=== PATIENT | male | born 1940 | race Caucasian/White ===

== ENCOUNTER 2022-11-16 12:12 | Outpatient (CLI) | payer BC, SELFPAY ==
--- OUTSIDE RECORDS SUMMARY | 2022-11-17 09:50 | XMS_ITS | Continuity of Care Document ---
Author Name [facility] Team Providers Care Weighter Name Role Phone [facility] Unavailable Unavailable Problems Problem Status Onset Date Classification Date Reported Comments Source Open wound of toe (disorder) 07/05/2021 [facility] Accidental bumping into stationary object (finding) 07/05/2021 [facility] Closed fracture of distal phalanx of right great toe (disorder) 07/05/2021 [facility] Laceration of great toe (disorder) 07/05/2021 [facility] Long-term current use of anticoagulant (situation) 07/05/2021 [facility] Cardiac pacemaker in situ (finding) 07/05/2021 [facility] Medications Medication Details Route Status Patient Instructions Ordering Provider Order Date Source Cephalexin 500 MG Oral Capsule [Keflex] 2 Cap Cap, PO, BID, Qty: 40 Cap, Refills: 0, Maintenance, Print Requisition Inactive 022 [facility] Diagnostic Reports Report Value Date Source XR [...] N A L * * * 06/27/2021 [facility] Consultation Notes Results Value Date Source ED [...] Co Signature By: Modify Signature By: 06/27/2021 [facility] ED Discharge Note - Text ED Discharge [...] Aleyda Bridges - 06/27/2021 1:14 MST 06/27/2021 [facility] Discharge Instructions Document [facility] [address] [place], [place] [address] BRIELLE VILLASEÑOR :1940 (EV) Visit Date:06/26/2021 SAFE [...] receive a prescription for pain medicines. In [place], we use the [place] Prescription Drug Monitoring Program called BoutirS. In [place] and [place], we use the Prescription Monitoring Program that has oversight by the [place] and [facility] boards of pharmacy. These statewide computer systems track opioid pain medications and other controlled substance prescriptions. If you need help with substance abuse or addiction, please call [phone] ([phone] for confidential referral and treatment. Sponsored by: [employer] [facility] [employer] [facility] Healthcare Association [facility] [employer] Safe Practice, Safe Care [facility] Emergency Department Patient Discharge Instructions If your [...] 3 days Why: Podiatry Where: [address] [facility] [place] [address]- Business (1) Follow Up with Out of State PCP When Within 1 to 3 days We encourage you to sign up for My Portal, where you can easily access your medical records and test results from all [facility]. Please sign up in one of the [...] and water are not available, use hand conservation scientist. Change your dressing as told by your [...] swelling. It also prevents infection. Medicine Take [id number] and prescription medicines only as told by [...] provider. Document Revised: 10/26/2018 Document Reviewed: 10/26/2018 [employer] Patient Education ? 2020 [employer] Nail Avulsion Nail avulsion is when [...] and water are not available, use hand conservation scientist. Change your dressing as told by your [...] swelling. It also prevents infection. Medicine Take yhft-xlq-gbozkjg and prescription medicines only as told by [...] Reviewed: 10/26/2018 Elsevier Patient Education ? 2020 [employer] I understand that [facility] is not responsible for any personal belongings/effects [...] Adult Signature: Date/Time: Provider Signature: Date/Time: 06/27/2021 [facility] Discharge Instructions Document [facility] [address] [place], [place] [address] BRIELLE VILLASEÑOR :1940 (EV) Visit Date:06/26/2021 SAFE [...] receive a prescription for pain medicines. In [place], we use the [place] Prescription Drug Monitoring Program called CURES. In [place] and [place], we use the Prescription Monitoring Program that has oversight by the [place] and [facility] boards of pharmacy. These statewide computer systems track opioid pain medications and other controlled substance prescriptions. If you need help with substance abuse or addiction, please call [phone] ([phone]) for confidential referral and treatment. Sponsored by: [employer] ADVANCING EMERGENCY CARE DIRECTOR [facility] [employer] [facility] and Healthcare Association [facility] Association [employer] Safe Practice, Safe Care [facility] Emergency Department Patient Discharge Instructions If your [...] 1 to 3 days Why: Podiatry Where: [address] [address] [facility] [place] [address]- Business (1) Follow Up with Out of State PCP When Within 1 to 3 days We encourage you to sign up for My Portal, where you can easily access your medical records and test results from all [facility]. Please sign up in one of the [...] and water are not available, use hand conservation scientist. Change your dressing as told by your [...] swelling. It also prevents infection. Medicine Take ofkn-znv-dsgfjnc and prescription medicines only as told by [...] provider. Document Revised: 10/26/2018 Document Reviewed: 10/26/2018 [employer] Patient Education ? 2020 [employer] Nail Avulsion Nail avulsion is when [...] and water are not available, use hand conservation scientist. Change your dressing as told by your [...] swelling. It also prevents infection. Medicine Take gdhx-uze-hnsnxwa and prescription medicines only as told by [...] Reviewed: 10/26/2018 Elsevier Patient Education ? 2020 [employer] I understand that [facility] is not responsible for any personal belongings/effects [...] Adult Signature: Date/Time: Provider Signature: Date/Time: 06/27/2021 [facility] ED Physician Notes Patient: BRIELLE VILLASEÑOR (EV) [...] The case was discussed with: the physician medical technician assistant (LB Natarajan). History of Present Illness [...] date. Patient seen and evaluated with physician medical technician assistant, please see the note for complete [...] and Plan Complaint of Toe laceration (PNED [id number], Reason For Visit, Nursing) Nail avulsion of toe ([id number] S91.209A, Discharge, Medical) Plan Notes: Roscoe Strange [...] Maida Cook DO On 06/27/21 02:51 06/27/2021 [facility] ED Physician Notes Patient: BRIELLE VILLASEÑOR (EV) [...] Measurements 06/26/2021 23:16 MST BSA-pt care 2.17 [place] Body Weight 75.3 kg Weight Method Actual [...] Impression and Plan Nail avulsion of toe ([id number] S91.209A, Discharge, Medical) Plan Condition: Stable. Disposition: Medically cleared, Discharged: to home. Prescriptions: [facility]: Keflex 500 mg oral capsule (Prescribe): [...] By: Roscoe Aguiar On 06/26/21 23:37 06/27/2021 [facility] ED Assessment - Text ED Initial Screenin g Entered On: 06/26/2021 23:20 [facility] Performed On: 06/26/2021 23:19 MST by Esther Persaud RN ED General Assessment Document Falls Risk : Open ED [facility] Fall Risk Assessment Emotional Assmt Criteria : Does not meet criteria Document Tim Skin Risk : Open Tim Skin Risk Assessment Document Social History : Open social history Suicide Risk Screen : Yes Immunization Opt Out : Allow Esther Persaud RN - 06/26/2021 23:19 [facility] ED Abuse Observable Signs of Abuse/Violence : None observed Threatening Health, Safety, Well-being : Denies Abuse Calculation : 0 Abuse Interp : No Esther Persaud RN - 06/26/2021 23:19 [facility] ED Fall Interventions Basic Fall Safety Interven [...] reach, Provide fall prevention eduction to patient/family, [place] patient to surroundings, call light, lighting, location of BR, whether to use BR with or without assistance, Encourage non-skid footwear when ambulating, Consider bedside commonde/urinal Esther Persaud RN - 06/26/2021 23:19 [facility] [place] Suicide Severity Rating Scale (C-SSRS) 1. In [...] time Esther Persaud RN - 06/26/2021 23:19 [facility] ED Fall Risk Assessment History of Falling [...] 23:19:48 MST by Esther Persaud RN) Home/Environment: [employer] restrictions/concerns: None. (Last Updated: 06/26/2021 23:19:51 MST [...] 23 Esther Persaud RN - 06/26/2021 23:19 [facility] 06/27/2021 [facility] ED Assessment - Text ED Initial Screenin g Entered On: 06/26/2021 23:20 MST Performed On: 06/26/2021 23:19 MST by Esther Persaud RN ED General Assessment Document Falls Risk : Open ED [facility] Fall Risk Assessment Emotional Assmt Criteria : [...] No Esther Persaud RN - 06/26/2021 23:19 [facility] ED Fall Interventions Basic Fall Safety Interven [...] reach, Provide fall prevention eduction to patient/family, [place] patient to surroundings, call light, lighting, location of BR, whether to use BR with or without assistance, Encourage non-skid footwear when ambulating, Consider bedside commonde/urinal Esther Persaud RN - 06/26/2021 23:19 [facility] [place] Suicide Severity Rating Scale (C-SSRS) 1. In [...] time Esther Persaud RN - 06/26/2021 23:19 [facility] ED Fall Risk Assessment History of Falling (Fall) : No Confusion Disorientation (Fall) : No Intoxicated Sedated (Fall) : No Impaired Gait (Fall) : No Mobility Assist Device (Fall) : No Altered Elimination (Fall) : No Fall Risk Score (Fall) : 0 Basic Fall Risk Safety Interventions : Yes Esther Persaud RN - 06/26/2021 23:19 [facility] Social History Verified Prev Data - Social History : Yes Esther Persaud RN - 06/26/2021 23:19 [facility] Social History (As Of: 06/26/2021 23:36:55 [facility]) Tobacco: Never (less than 100 in lifetime) (Last Updated: 06/26/2021 23:19:37 MST by Esther Persaud RN) Alcohol: Current, Daily (Last Updated: 06/26/2021 23:36:33 MST by Esther Persaud RN) Substance Abuse: Denies (Last Updated: 06/26/2021 23:19:48 MST by Esther Persaud RN) Home/Environment: [employer] restrictions/concerns: None. (Last Updated: 06/26/2021 23:19:51 MST [...] Persaud RN - 06/26/2021 23:19 MST 06/27/2021 [facility] ED Triage - Text ED Triage Entered [...] vaccinated Esther Persaud RN - 06/26/2021 23:16 [facility] Infectious Disease Risk Screening Grid Cough < [...] MST Preferred Language for Healthcare Discussions : Hebrew Assistive Device for Communication : No Sensory [...] Status : N/A Todays Date : 06/26/2021 [facility] Living Situation : Lives with spouse SIRS Criteria : N/A SIRS Actual or Suspected Infection : No INF Disease TB Screening Calc : 0 Pediatric Patient : N/A Esther Persaud RN - 06/26/2021 23:16 MST Drug/Clinical Calc Ht/Wt [place] Height Method : Stated Height Measurement Used : inches Height in : 71 Inch Height (cm) : 180.34 cm Weight Method : Actual Weight Measurement Used : kilograms Weight kg (metric) : 94.2 kg Drug Calc Weight (kg) : 94.2 kg BSA-pt care : 2.17 BMI : 28.96 kg/m2 [place] Body Weight : 75.3 kg Adjusted Body [...] N/A Esther Persaud RN - 06/26/2021 23:16 [facility] Allergies and Current Meds (ED) (As Of: 06/26/2021 23:19:12 [facility]) Allergies (Active) No Known Medication Allergies Estimated Onset Date: Unspecified ; Created By: Esther Persaud RN; Reaction Status: Active ; Category: Drug ; Substance: No Known Medication Allergies ; Type: Allergy ; Updated By: Esther Persaud RN; Reviewed Date: 06/26/2021 23:19 [facility] Medication List (As Of: 06/26/2021 23:19:12 [facility]) 06/27/2021 [facility] Vital Signs Vital Sign Value Date Comments Source Heart Rate (bpm) 81 06/27/2021 [facility] Respiratory Rate 16 Breaths/Min 06/27/2021 [facility] Oxygen Method Room air (06/27/21 1:14 AM) 06/27/2021 [facility] SPO2 96 06/27/2021 [facility] Systolic (mm Hg) 135 06/27/2021 [facility] Diastolic (mm Hg) 87 06/27/2021 [facility] Height (cm) 180.34 06/27/2021 [facility] Weight Method Actual (06/26/21 11:1 6 PM) 06/27/2021 [facility] Drug Calc Weight (kg) 94.2 06/27/2021 [facility] BMI 28.96 06/27/2021 [facility] Sensory Deficits None (06/26/21 11:16 PM) 06/27/2021 [facility] Temperature (c) 36.4 06/27/2021 [facility] Systolic (mm Hg) 141 06/27/2021 [facility] Diastolic (mm Hg) 80 06/27/2021 [facility] Heart Rate (bpm) 83 06/27/2021 [facility] Respiratory Rate 16 Breaths/Min 06/27/2021 [facility] SPO2 94 06/27/2021 [facility] Oxygen Method Room air (06/26/21 11:16 PM) 06/27/2021 [facility] Living Situation Lives with spouse (06/26/21 11:16 PM) 06/27/2021 [facility] Encounters Location Location Details Encounter Type Encounter Number Reason For Visit Attending Provider ADM Date DC Date Status Source [facility] Emergency [id number] Maida Cook 06/27 [facility] Social History Social History Date Source Social History TypeResponse Smoking Status Never (less than 100 in lifetime) entered on: 06/26/21 Sex 06/27/2021 [facility] nter Assessment and Plan Result Assessment and Plan Date Source Assessment and Plan No data available fo r this section 06/27/2021 [facility]
== END 2022-11-16 12:13 | disposition home or self-care (01) ==
LOC: AMB 11-17 09:48
PROVIDERS: PCP Family Medicine; Visit Provider Family Medicine
DX: M96.830 Postprocedural hemorrhage of a musculoskeletal structure following a musculoskeletal system procedure (principal); Z89.411 Acquired absence of right great toe
CPT/HCPCS: A0425; A0429

== ENCOUNTER 2022-11-16 12:30 | Emergency (ER) | payer BC, SELFPAY ==
[2022-11-16] VITALS (10 sets, daily range): BP systolic 107–155; BP diastolic 70–85; PULSE 60–78; RESP 12–18; TEMP 36.6; O2SAT 93–96; BMI 25.4
[2022-11-16 13:06] LABS: Basophils Percent Auto 0.7 % (0.0-3.0); Eosinophils Percent Auto 3.2 % (0.0-7.0); Hematocrit 29.7 % (37.0-53.0); Hemoglobin* 9.3 gm/dL (13.5-17.5); Immature Granulocytes Pct Auto 0.2 %; Lymphocytes Percent Auto 26.8 % (20-44); Mean Corpuscular HGB Conc 31 gm/dL (32-36); Mean Corpuscular Hemoglobin 30 pg (26-34); Mean Corpuscular Volume 95 fL (80-100); Monocytes Percent Auto 10.2 % (0.0-11.0); Neutrophils Percent Auto 58.9 % (42.0-72.0); Platelet Count* 275 K/uL (140-440); RDW Coefficient of Variation % 16.3 % (11.5-15.5); Red Blood Count 3.12 m/uL (4.30-5.90); White Blood Count* 4.03 K/uL (4.50-11.00)
--- NOTE | 2022-11-16 13:06 | ED_ITS ---
HPI - General Adult General Date Seen: 11/16/22 Chief complaint: Post Op Complication Stated complaint: post op complications Time Seen by Provider: 11/16/22 13:06 History of Present Illness HPI narrative: This is a pleasant 82-year-old gentleman brought to the ER today by EMS from his care facility with concern that he has had heavy bleeding from his right great toe. He has a history of atrial fibrillation and is chronically anticoagulated on warfarin. He apparently had an elevated INR about a week ago. It was 5.1. He was actually taken off warfarin a day or 2 ago in anticipation of an upcoming dental procedure. He does not know his most recent INR. He does not recall any other unusual bruising or bleeding this week. He apparently has a history of osteomyelitis affecting his right great toe. He underwent amputation of the great toe by a surgeon at [facility] on November 05, about 10 days ago. He feels like the toe has been healing well. He has been wearing what sounds like a postop shoe. No unusual redness or swelling, purulent drainage or unusual bleeding since the operation. This morning he got up and went to the bathroom. He does not think he bumped his toe. However started bleeding. It sounds like he had a small pool of blood on the floor under his toe. The nurses at his care facility placed a dressing and an ad Hoc tourniquet but noticed ongoing bleeding so called the ambulance. When paramedics arrived there was a gauze dressing in place. They had concern for ongoing bleeding but not did not take the dressing down. They placed a tourniquet around the patient's right thigh (placed at about 12:15 p.m., roughly 40 minutes prior to arrival. They have not noticed any ongoing bleeding since they picked up the patient. Patient is otherwise feeling fine. No weakness or dizziness or lightheadedness. No symptoms of blood loss. He is not having any pain in the foot or leg. Related Data Home Medications Medication Instructions Recorded Confirmed Fish Oil 11/16/22 aspirin 81 mg tablet,delayed 81 mg PO DAILY 11/16/22 11/16/22 release (Adult Aspirin Regimen) buspirone 10 mg tablet 5 mg PO BID 11/16/22 11/16/22 daptomycin 500 mg intravenous 650 mg IV DAILY 11/16/22 11/16/22 solution folic acid 800 mcg tablet 800 mcg PO DAILY 11/16/22 11/16/22 furosemide 20 mg tablet 20 mg PO DAILY 11/16/22 11/16/22 losartan 100 mg tablet 100 mg PO DAILY 11/16/22 11/16/22 metoprolol succinate 100 mg 100 mg PO DAILY 11/16/22 11/16/22 tablet,extended release 24 hr pantoprazole 40 mg tablet,delayed 40 mg PO DAILY 11/16/22 11/16/22 release sertraline 50 mg tablet 50 mg PO DAILY 11/16/22 11/16/22 warfarin 11/16/22 Allergies Allergy/AdvReac Type Severity Reaction Status Date / Time adhesive tape Allergy Unknown Verified 11/16/22 12:51 PFSH PFS Social History Smoking Status: Smoker, status unknown Non-prescribed substance use: denies use Exam Narrative: Exam Narrative: Constitutional: Appears well-developed and well-nourished. Alert. Conversant. Non toxic. Arrives by EMS. Report is taken from the paramedics if HENT: Head: Atraumatic. Nose: Nose normal. Mouth/Throat: Oral mucosa is clear and moist. no trismus. Pharynx normal. Tonsils symmetric. No tonsillar enlargement, erythema, or exudate. Eyes: Conjunctivae normal. EOM normal. Pupils equal, round, and reactive to light. No scleral icterus. Wearing sunglasses (his other glasses were left at home and the [facility] to bring him here) Neck: Normal range of motion. Neck supple. No tracheal deviation present. Cardiovascular: Normal rate, regular rhythm. No gallop. No friction rub. No murmur heard. Symmetric radial artery pulses Pulmonary/Chest: Effort normal. No stridor. No respiratory distress. No wheezes. No rales. No rhonchi . No tenderness. Musculoskeletal: RUE: Normal range of motion. No tenderness. No deformity LUE: Normal range of motion. No tenderness. No deformity RLE: He has a tourniquet in place on the right thigh. It does appear to be tight by initial exam. There is a white gauze dressing wrapped around the patient's great toe stump and forefoot. No blood saturating the dressing and no sign of active bleeding. He does not have any definite pulses in the foot but possibly a weak DP pulses palpable. He does have cap refill. The leg and foot did not appear to be cyanotic or ischemic. We removed the dressing. There is a wound line. At the site of the great toe amputation. There are multiple blue nylon stitches present in the skin. There is some friable skin or tissue not cover by epidermis roughly 1 x 3 cm in size. No definite surrounding erythema, purulent drainage, or fluctuance. No active bleeding but there does appear to be recent oozing from the friable tissue and from around the sutures. This leads me to suspect supratherapeutic INR. When we palpate adjacent to the wound we are able to express a small score of dark red blood, likely putting pressure on a contained hematoma and having it squirted out through the wound edge. After this he has small slow venous oozing from that puncture site along the wound. We infiltrated with 4 mL of 1% lidocaine with epinephrine he. We applied a single simple interrupted suture on both sides of the oozing site to try to over sew it and tamponade the bleeding. After placement of the suture there was minimal ongoing oozing from the entire wound edge. We applied Gelfoam. We took down the tourniquet. There did not appear to be any ongoing oozing or bleeding there. Nothing worsened after removing the tourniquet. I held direct pressure for 5 minutes. No ongoing bleeding was noted. He we then applied a small Adaptic dressing over the top of the Gelfoam and then a gauze dressing. No sign of recurrent bleeding. No the remainder of his lower extremity is normal. Normal range of motion. No edema. No tenderness. No deformity LLE: Normal range of motion. No edema. No tenderness. No deformity Lymph: No ascendinglymphangitis Neurological: Alert and oriented to person, place, and time. Normal strength. CN II-VII intact. No sensory deficit. GCS eye subscore is 4. GCS verbal subscore is 5. GCS motor subscore is 6. Normal coordination Skin: Skin is warm and dry. No rash noted. No pallor. Normal capillary refill. Psychiatric: Normal mood. Normal affect. Const: Vital Signs, click to edit/add: Vital Signs - 24 hr 11/16/22 12:37 11/16/22 12:39 11/16/22 13:01 Temperature 98 F Pulse Rate 78 60 Pulse Rate [Pulse Oximeter] 77 Respiratory Rate 18 12 12 Blood Pressure 133/85 132/76 Blood Pressure [Le ft Upper Arm] 133/85 Pulse Oximetry 95 96 95 Oxygen Delivery Me thod Room Air 11/16/22 13:31 11/16/22 14:02 11/16/22 14:31 Temperature Pulse Rate 60 60 60 Pulse Rate [Pulse Oximeter] Respiratory Rate 14 12 14 Blood Pressure 134/70 107/70 136/83 Blood Pressure [Le ft Upper Arm] Pulse Oximetry 95 94 95 Oxygen Delivery Me thod 11/16/22 15:01 11/16/22 15:31 11/16/22 16:01 Temperature Pulse Rate 60 60 60 Pulse Rate [Pulse Oximeter] Respiratory Rate 12 12 18 Blood Pressure 148/80 H 144/84 H 155/80 H Blood Pressure [Le ft Upper Arm] Pulse Oximetry 93 94 93 Oxygen Delivery Me thod 11/16/22 16:36 Temperature 98 F Pulse Rate Pulse Rate [Pulse Oximeter] 77 Respiratory Rate 12 Blood Pressure Blood Pressure [Le ft Upper Arm] 133/85 Pulse Oximetry Oxygen Delivery Me thod Course Course Hospital Course: Patient arrived by EMS. Initial evaluation in report obtained from EMS. My partner and I were present. We took down the dressing on the patient's toe. There was minimal bleeding. We placed a suture over the suspected bleeding site, removed the tourniquet. We applied Gelfoam and direct pressure and were able to control bleeding. Reevaluation(s) Reevaluation #1: Recheck-there has been a little bit of ongoing bleeding with about a 1 x 2 cm area of blood soaking the gauze. No active or rapid bleeding. Reevaluation #2: Recheck-nurses noted a tiny amount more active bleeding. Patient says this is about what it has been bleeding from the wound recently every day. Nurses took down the dressing and noted a small bleeding site within about 1 cm of the area where I had for placed and over-sewing stitch before. There reapply Gelfoam and dressing. INR is therapeutic today at 2.46. Discussed with the patient and his family. Discussed risks and benefits. We agreed that we would try to reverse. Oral vitamin K administered. This point with no active bleeding and no signs of life-threatening bleeding, would hold off on PCC or FFP. Discussed the thrombotic/embolic risks of reversing the warfarin, in particular risk of stroke in the setting of AFib. However in this case we feel that the risk of ongoing bleeding would outweigh the risk of stroke. Patient and family agree. Reevaluation #3: Recheck-minimal ongoing oozing. I took down the nurses 2nd dressing. Using sterile technique I placed an additional injection of 2 mL of 1% lidocaine with epi, local infiltration. I placed a 2nd suture to over sew the 2nd bleeding site. This was a single simple interrupted 4-0 Ethilon suture. I monitored the patient's wound without any dressing for a couple of minutes. There was no ongoing bleeding. I then reapplied sterile Gelfoam dressing, covered this with Adaptic and then gauze and gauze wrapping. We monitored the patient. There was no recurrent bleeding. Vital Signs Vital signs: Initial Vital Signs Temperature 98 F 11/16/22 12:37 Temperature Source Temporal Artery Scan 11/16/22 12:37 Pulse Rate 77 11/16/22 12:37 Respiratory Rate 18 11/16/22 12:37 Blood Pressure 133/85 11/16/22 12:37 Blood Pressure Mean 101 11/16/22 12:37 Blood Pressure Position Supine 11/16/22 12:37 Pulse Oximetry 95 11/16/22 12:37 Oxygen Delivery Method Room Air 11/16/22 12:37 Vital Signs Temperature 98 F 11/16/22 12:37 Pulse Rate 77 11/16/22 12:37 Respiratory Rate 18 11/16/22 12:37 Blood Pressure 133/85 11/16/22 12:37 Pulse Oximetry 95 11/16/22 12:37 Oxygen Delivery Method Room Air 11/16/22 12:37 Temperature 98 F 11/16/22 16:36 Pulse Rate 77 11/16/22 16:36 Respiratory Rate 12 11/16/22 16:36 Blood Pressure 133/85 11/16/22 16:36 Pulse Oximetry 93 11/16/22 16:01 Oxygen Delivery Method Room Air 11/16/22 12:37 Medical Decision Making MDM Narrative Medical decision making narrative: Very pleasant 82-year-old male brought to the ER today for by EMS from his care facility with concern for heavy bleeding from his right great toe. He had had a toe amputation (for osteomyelitis) performed on November 05. He had not had any significant bleeding until today. Tourniquet had been placed pre-hospital. By the time he arrived here in the ER there was minimal ongoing bleeding. We were able to evaluate the wound in a nearly bloodless field and oversewed it. We then took the tourniquet down. We monitored the patient for couple of hours here in the ER. He did have some ongoing very slow venous oozing, enough to saturate a couple of cm on the gauze but not to soak the gauze dressing or any significant ongoing blood loss. We tried readjusting dressings and hemostatic dressings to control the bleeding. Ultimately we had over so a 2nd site along the wound edge. At this point we seemed to achieved hemostasis. At this point I do not think needs to be admitted to the hospital for monitoring/serial hemoglobin testing. He is hemodynamically stable and having no symptoms of anemia. Labs do show a low hemoglobin of 9.4. Discussed this with the patient's family. They do not remember his exact numbers from [facility] the last week, but it sounds like he may have chronic anemia. Previous hemoglobins levels are not available for comparison. He is on warfarin for with strong is like stroke prophylaxis in the setting of atrial fibrillation. 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 He has had recently supratherapeutic INRs. (patient reported 5.1 but says it was actually 6.4 last week). Patient reported that they had actually stopped his Coumadin 2 days ago in anticipation of a dental procedure. In fact, his says that they been dialing back to Coumadin dose but have not stopped it. In the setting of heavy bleeding this morning and ongoing bruising that appears to be coming from around the sutures, I think that he would benefit from cessation/reversal of the Coumadin. As above, discussed the risks and benefits of reversing the Coumadin. At this point we feel the risks of recurrent bleeding/ongoing blood loss would outweigh the benefits stroke prophylaxis in the setting of AFib. We administered vitamin K 5 mg oral here in the ER. Since we have been able to control the bleeding here, and he is hemodynamically stable, there is no indication for immediate reversal with PCC or FFP. Discussed wound care. Precautions for return to the ER. Discussed need for follow-up with their surgeon to re-evaluate the wound. It turns out they have not yet scheduled their surgical follow-up appointment but it would be do some day this week within the next 2-3 days. His and daughter will call to schedule that appointment tomorrow. Lab Data Labs: Lab Results 11/16/22 Range/Units 12:55 WBC 4.03 L (4.50-11.00) K/uL RBC 3.12 L (4.30-5.90) m/uL Hgb 9.3 L (13.5-17.5) gm/dL Hct 29.7 L (37.0-53.0) % MCV 95 (80-100) fL MCH 30 (26-34) pg MCHC 31 L (32-36) gm/dL RDW Coeff of Meghan 16.3 H (11.5-15.5) % Plt Count 275 (140-440) K/uL Neut % (Auto) 58.9 (42.0-72.0) % Lymph % (Auto) 26.8 (20-44) % [place]land % (Auto) 10.2 (0.0-11.0) % Eos % (Auto) 3.2 (0.0-7.0) % Baso % (Auto) 0.7 (0.0-3.0) % Neut # (Auto) 2.40 (1.7-7.0) K/uL Lymph # (Auto) 1.10 (0.90-2.90) K/uL Highland # (Auto) 0.40 (0.00-0.90) K/UL Eos # (Auto) 0.10 (0.00-0.50) K/uL Baso # (Auto) 0.00 (0.00-0.30) K/uL Abs Immat Gran (auto) 0.00 (0.00-0.30) K/uL Imm/Tot Granulo (auto) 0.2 % INR 2.46 H (0.91-1.10) Blood Type A Positive Antibody Screen NEGATIVE Discharge Plan Discharge Clinical Impression: Post-op bleeding, Anemia Patient Disposition: Home, Self-Care Condition: Stable Instructions: Anemia (ED) Additional Instructions: Please monitor your incision and your dressing carefully. Keep the dressing in place today but it is okay to take the dressing off and change it tomorrow. If he notice any more bleeding, especially blood soaking through the gauze on the dressing, please come back to the ER or see your surgeon right away to be rechecked. We have given you vitamin K today to reverse the your Coumadin. Please stop taking Coumadin today and hold off for the next 2-3 days. This will allow your blood to return to its normal thickness. After you see your surgeon in recheck, you can determine when it is safe to resume taking Coumadin. As we discussed, being off Coumadin will increase her risk of having a stroke. If you develop any symptoms that are worrisome for stroke, call 911 and return to the ER immediately. Your hemoglobin level is mildly low at 9.4. Please recheck this with your do ctor or your surgeon within 2-3 days. Activity Detail: Limit ambulation weight-bearing on your right foot, until you are cleared to return to full activity by your surgeon. Use your walker when you are up and around. Prescriptions: No Action aspirin [Adult Aspirin Regimen] 81 mg tablet,delayed release (DR/EC) 81 mg PO DAILY buspirone 10 mg tablet 5 mg PO BID Fish Oil folic acid 800 mcg tablet 800 mcg PO DAILY furosemide 20 mg tablet 20 mg PO DAILY losartan 100 mg tablet 100 mg PO DAILY metoprolol succinate 100 mg tablet extended release 24 hr 100 mg PO DAILY warfarin sertraline 50 mg tablet 50 mg PO DAILY daptomycin 500 mg recon soln 650 mg IV DAILY Rx Instructions: administer for 37 days pantoprazole 40 mg tablet,delayed release (DR/EC) 40 mg PO DAILY Follow Up/Referrals: Micky Sheehan MD [Primary Care Provider] - Stand Alone Forms: [facility] Info Instructions
--- NOTE | 2022-11-16 13:06 | ED.NURSE ---
Labs drawn from PICC line and sent to lab, waste disposed of. Lac repair done by Dr. Metz and Dr. Sanford with local anesthetic. Tourniquet released by Dr. Sanford. Dressing applied, bleeding controlled at this time. Call light within reach. Pain controlled. VSS.
[2022-11-16 13:20] LABS: INR 2.46 (0.91-1.10); Prothrombin Time 27.9 Seconds
--- OUTSIDE RECORDS SUMMARY | 2022-11-16 13:25 | XMS_ITS | Continuity of Care Document ---
Author Name [facility] Team Providers Care Case Management Director Name Role Phone [facility] Unavailable Unavailable Problems Problem Status Onset Date Classification Date Reported Comments Source Open wound of toe (disorder) 07/05/2021 [facility] Accidental bumping into stationary object (finding) 07/05/2021 [facility] Closed fracture of distal phalanx of right great toe (disorder) 07/05/2021 [facility] Laceration of great toe (disorder) 07/05/2021 [facility] Long-term current use of anticoagulant (situation) 07/05/2021 [facility] Cardiac pacemaker in situ (finding) 07/05/2021 [facility] Medications Medication Details Route Status Patient Instructions Ordering Provider Order Date Source Cephalexin 500 MG Oral Capsule [Keflex] 2 Cap Cap, PO, BID, Qty: 40 Cap, Refills: 0, Maintenance, Print Requisition Inactive 022 [facility] Diagnostic Reports Report Value Date Source XR Foot 2 Views Rt Reason For Exam Stubbed right great toe Exam: 2 views of the right foot. Clinical indication: Right foot pain status post injury. Comparison:None are available Findings: Bone mineralization appears be within normal limits. There appears be a comminuted fracture of the first distal phalanx at its mid segment as well as at its base with possible involvement of the articular surface. No dislocation demonstrated. There appears be additional fracture at the base of the fourth proximal phalanx. Possible erosive changes at the base of the second proximal phalanx. Probable artifactual appearance of hypertrophied medial cuneiform. No acute fracture otherwise seen. No dislocation. Exuberant plantar calcaneal spur identified. IMPRESSION: There is a comminuted fracture of the first distal phalanx with likely involvement of the base. There is additional probable fracture at the base of the fourth proximal phalanx without involvement of the articular surface. No dislocation. Additional findings as above. * * * F I N A L * * * Dictated by: Ralf Kraft MD, Physician Electronically signed by: Ralf Kraft MD Transcribed by:KEMI , , , S: 06/27/2021 00:54 * * * F I N A L * * * 06/27/2021 [facility] Consultation Notes Results Value Date Source ED Physician Notes Patient: BRIELLE VILLASEÑOR (EV) Age: 80 years Sex: M : 1940 Associated Diagnoses: None Author: Ren Ace MD Addendum Rad-Lab Results Addendum: Report: 06/27/2021 12:45:00 , X-ray report shows comminuted fracture of the first distal phalanx likely involvement of the base. It also identifies a probable fracture at the fourth proximal phalanx without involvement of the articular surface., Plan: Patient to return to ED for further evaluation, Attempt at contact: 06/27/2021 12:45:00 , Message left for patient to return call. Electronically Signed By: Ren Ace MD On 06/27/21 12:46 Co Signature By: Modify Signature By: 06/27/2021 [facility] ED Discharge Note - Text ED Discharge No te Entered On: 06/27/2021 1:15 MST Performed On: 06/27/2021 1:14 MST by Aleyda Bridges ED Discharge Note Discharge Disposition : Home Mode of Discharge : Ambulatory self assisted off gurrney/chair Accompanied by - ED : Spouse Transportation : Private vehicle Discharge Vital Signs : N/A Educational Topics : Plan of care, Medications, Prescriptions Team Care at Discharge : Provider in Room Individuals Taught : Patient, Spouse Barriers to Learning : None evident Teaching Method : Explanation, Printed materials Teaching Outcome : Communicated understanding Teach Back : Yes Referrals : Primary Physician Document Assistance Summary : Document assistance summary Aleyda Bridges - 06/27/2021 1:14 MST 06/27/2021 [facility] Discharge Instructions Document [facility] [address] [place], [place] [address] BRIELLE VILLASEÑOR :1940 (EV) Visit Date:06/26/2021 [facility]AF[facility]IN MEDIC[facility] PRESCRIBING We care about you. Our goal is to treat your medical conditions, including pain, effectively, safely and in the right way. Pain relief treatment can be complicated. Mistakes or abuse of pain medicine can cause serious health problems and . Our emergency department will only provide pain relief options that are safe and correct. For your SAFETY, we routinely follow these rules when helping you with your pain. We look for and treat emergencies. We use our best judgement when treating pain. These recommendations follow legal and ethical advice. You should have only ONE provider and ONE pharmacy helping you with pain. We do not usually prescribe pain medication if you already receive pain medicine from another health care provider. If pain prescriptions are needed for pain, we will only give you a limited amount. We do not refill stolen or lost prescriptions for pain medication. We do not prescribe long-acting pain medicines such as: OxyContin, MSContin, Fentanyl (Duragesic), Methadone, Opana ER, Exalgo, and others. We do not provide missed doses of Methadone. We do not usually give shots for flare-ups of chronic pain. Health care laws, including HIPAA, allow us to ask for all of your medical records. These laws allow us to share information with other health providers who are treating you. We may ask you to show a photo ID when you receive a prescription for pain medicines. In [place], we use the [place] Prescription Drug Monitoring Program called [employer]. In [place] and [place], we use the Prescription Monitoring Program that has oversight by the [place] and [facility] boards of pharmacy. These statewide computer systems track opioid pain medications and other controlled substance prescriptions. If you need help with substance abuse or addiction, please call [phone] ([phone] for confidential referral and treatment. Sponsored by: [employer]ING [employer]ERG[employer] Healthcare Association [facility] [employer] Safe Practice, Safe Care [facility] Emergency Department Patient Discharge Instructions If your symptoms continue or worsen, return to the emergency department or contact your physician. If you have questions about your discharge instructions, call the phone number above. Providers Attending Physician - Juan Paula DO Lifetime Physician(PCP) - PCP, Out of State Provider Role Maykel Arita PA-C ED Provider Maida Cook DO ED Provider Reason for Visit Foot laceration Discharge Diagnosis Nail avulsion of toe Discharge Vitals T: 36.4 ?C (Oral) HR: 83 RR: 16 BP: 141/80 SpO2: 94% Oxygen Method: Room air HT: 180.34 cm WT: 94.2 kg BMI: 28.96 BSA: 2.17 Time patient left the ED These instructions are intended to provide general information and guidelines to follow at home to properly care for your particular medical problem. The following diagnostic tests and/or procedures were performed during your stay. Tests Performed Foot XR 2 Views Rt Most Recent Lab Results Follow-up Instructions: All referrals for follow up medical care may require approval by your insurance carrier. Any provider contact information (below) is provided to assist you in getting the follow up we recommend. However, it's important that you first check with your insurance provider to assure that the provider is in yourinsurance provider to assure that the provider is in your network and such a visit will be covered. Some plans may require a Primary Care doctor to provide a referral for specialist appointments. You May Need to Schedule the Following Appointments Follow Up with Carolyn Mata When Within 1 to 3 days Why: Podiatry Where: [address] [facility] [place] [address]- Business (1) Follow Up with Out of State PCP When Within 1 to 3 days We encourage you to sign up for My Portal, where you can easily access your medical records and test results from all [facility]. Please sign up in one of the following ways: 1. Email invitation. You may have a message in your inbox. Please click the link provided to create an account. OR 2. Request an invitation at your next clinic or hospital visit. Please ask a staff member and they will be happy to assist you. Medications What How Much When Instructions Next Dose New cephalexin (Keflex 500 mg oral capsule) 2 cap By mouth Twice daily Duration: 10 Days Printed Prescription Discharge Orders Discharge Orders: Discharge Now, Home or self care Education Materials Nail Avulsion Nail avulsion is when a nail tears away from the nail bed due to an accident or injury. Nail avulsion can be painful. Your finger or toe may bleed a lot, and you may have some pain, redness, throbbing, and swelling while it heals. Your nail will grow back within several months. Once it grows back, it might not look the same as the old nail. This may happen even after taking good care of it. Follow these instructions at home: Wound care Follow instructions from your health care provider about how to take care of your wound. Make sure you: Wash your hands with soap and water before and after you change your bandage (dressing). If soap and water are not available, use hand new client banking services clerk. Change your dressing as told by your health care provider. Leave stitches (sutures), skin glue, or adhesive strips in place, if present. These skin closures may need to stay in place for 2 weeks or longer. If adhesive strip edges start to loosen and curl up, you may trim the loose edges. Do not remove adhesive strips completely unless your health care provider tells you to do that. Check your wound every day for signs of infection. Check for: Redness, swelling, or pain. Fluid or blood. Warmth. Pus or a bad smell. Do not take baths, swim, or use a hot tub until your health care provider approves. Ask your health care provider if you may take showers. You may only be allowed to take sponge baths. If you notice bleeding, press gently on the nail bed with a gauze pad. Do this for 15 minutes. Keep the wound dry for 48 hours. After 48 hours have passed, lightly wash the finger or toe in warm, soapy water 2 3 times a day. This helps to reduce pain and swelling. It also prevents infection. Medicine Take hwbv-ntj-zokeqvv and prescription medicines only as told by your health care provider. Do not take aspirin or products containing aspirin unless directed by your health care provider. These products can increase bleeding. If you were prescribed an antibiotic medicine, take it or apply it as told by your health care provider. Do not stop taking or using the antibiotic even if you start to feel better. General instructions Keep the injured hand or foot raised above the level of your heart as much as possible in the first 48 hours after the injury. This helps to reduce pain and swelling. Move the toe or finger often to avoid stiffness. Do not use any products that contain nicotine or tobacco, such as cigarettes, e-cigarettes, and chewing tobacco. These can delay healing. If you need help quitting, ask your health care provider. Contact a health care provider if: You have increased redness, swelling, or pain around your wound. You have fluid or blood coming from your wound. You have pus or a bad smell coming from your wound. Your wound or the area around your wound feels warm to the touch. Get help right away if: You have bleeding that does not stop, even when you apply pressure to the wound. You have a temperature that is higher than 100.4?F (38?C). The affected finger or toe looks white or black. Summary Nail avulsion is when a nail tears away from the nail bed due to an accident or injury. Follow instructions from your health care provider about how to take care of your wound. Keep the injured hand or foot raised above the level of your heart as much as possible in the first 48 hours after the injury. This helps to reduce pain and swelling. Check your wound every day for signs of infection. Contact a health care provider if you have increased redness, swelling, or pain around your wound. This information is not intended to replace advice given to you by your health care provider. Make sure you discuss any questions you have with your health care provider. Document Revised: 10/26/2018 Document Reviewed: 10/26/2018 [employer] Patient Education ? 2020 [employer] Nail Avulsion Nail avulsion is when a nail tears away from the nail bed due to an accident or injury. Nail avulsion can be painful. Your finger or toe may bleed a lot, and you may have some pain, redness, throbbing, and swelling while it heals. Your nail will grow back within several months. Once it grows back, it might not look the same as the old nail. This may happen even after taking good care of it. Follow these instructions at home: Wound care Follow instructions from your health care provider about how to take care of your wound. Make sure you: Wash your hands with soap and water before and after you change your bandage (dressing). If soap and water are not available, use hand new client banking services clerk. Change your dressing as told by your health care provider. Leave stitches (sutures), skin glue, or adhesive strips in place, if present. These skin closures may need to stay in place for 2 weeks or longer. If adhesive strip edges start to loosen and curl up, you may trim the loose edges. Do not remove adhesive strips completely unless your health care provider tells you to do that. Check your wound every day for signs of infection. Check for: Redness, swelling, or pain. Fluid or blood. Warmth. Pus or a bad smell. Do not take baths, swim, or use a hot tub until your health care provider approves. Ask your health care provider if you may take showers. You may only be allowed to take sponge baths. If you notice bleeding, press gently on the nail bed with a gauze pad. Do this for 15 minutes. Keep the wound dry for 48 hours. After 48 hours have passed, lightly wash the finger or toe in warm, soapy water 2 3 times a day. This helps to reduce pain and swelling. It also prevents infection. Medicine Take rizi-deo-oechgks and prescription medicines only as told by your health care provider. Do not take aspirin or products containing aspirin unless directed by your health care provider. These products can increase bleeding. If you were prescribed an antibiotic medicine, take it or apply it as told by your health care provider. Do not stop taking or using the antibiotic even if you start to feel better. General instructions Keep the injured hand or foot raised above the level of your heart as much as possible in the first 48 hours after the injury. This helps to reduce pain and swelling. Move the toe or finger often to avoid stiffness. Do not use any products that contain nicotine or tobacco, such as cigarettes, e-cigarettes, and chewing tobacco. These can delay healing. If you need help quitting, ask your health care provider. Contact a health care provider if: You have increased redness, swelling, or pain around your wound. You have fluid or blood coming from your wound. You have pus or a bad smell coming from your wound. Your wound or the area around your wound feels warm to the touch. Get help right away if: You have bleeding that does not stop, even when you apply pressure to the wound. You have a temperature that is higher than 100.4?F (38?C). The affected finger or toe looks white or black. Summary Nail avulsion is when a nail tears away from the nail bed due to an accident or injury. Follow instructions from your health care provider about how to take care of your wound. Keep the injured hand or foot raised above the level of your heart as much as possible in the first 48 hours after the injury. This helps to reduce pain and swelling. Check your wound every day for signs of infection. Contact a health care provider if you have increased redness, swelling, or pain around your wound. This information is not intended to replace advice given to you by your health care provider. Make sure you discuss any questions you have with your health care provider. Document Revised: 10/26/2018 Document Reviewed: 10/26/2018 [employer] Patient Education ? 2020 [employer] I understand that [facility] is not responsible for any personal belongings/effects or valuables that have not been identified on the valuables and belongings list. Any personal effects brought into the facility and not recorded on the valuables and belongings form are the responsibility of the patient/family/significant other. I have received the indicated patient education materials/instructions and medication list and have verbalized understanding. Patient Name: BRIELLE VILLASEÑOR Patient/Responsible Adult Signature: Date/Time: Provider Signature: Date/Time: 06/27/2021 [facility] Discharge Instructions Document [facility] [address] [place], [place] [address] BRIELLE VILLASEÑOR :1940 (EV) Visit Date:06/26/2021 SAFE PAIN MEDICINE PRESCRIBING We care about you. Our goal is to treat your medical conditions, including pain, effectively, safely and in the right way. Pain relief treatment can be complicated. Mistakes or abuse of pain medicine can cause serious health problems and . Our emergency department will only provide pain relief options that are safe and correct. For your SAFETY, we routinely follow these rules when helping you with your pain. We look for and treat emergencies. We use our best judgement when treating pain. These recommendations follow legal and ethical advice. You should have only ONE provider and ONE pharmacy helping you with pain. We do not usually prescribe pain medication if you already receive pain medicine from another health care provider. If pain prescriptions are needed for pain, we will only give you a limited amount. We do not refill stolen or lost prescriptions for pain medication. We do not prescribe long-acting pain medicines such as: OxyContin, MSContin, Fentanyl (Duragesic), Methadone, Opana ER, Exalgo, and others. We do not provide missed doses of Methadone. We do not usually give shots for flare-ups of chronic pain. Health care laws, including HIPAA, allow us to ask for all of your medical records. These laws allow us to share information with other health providers who are treating you. We may ask you to show a photo ID when you receive a prescription for pain medicines. In [place], we use the [place] Prescription Drug Monitoring Program called [employer]. In [place] and [place], we use the Prescription Monitoring Program that has oversight by the [place] and [facility] boards of pharmacy. These statewide computer systems track opioid pain medications and other controlled substance prescriptions. If you need help with substance abuse or addiction, please call [phone] ([phone] for confidential referral and treatment. Sponsored by: [employer] ADVANCING EMERGENCY CARE TODDL[employer] [facility] and Healthcare Association [facility] [employer] Safe Practice, Safe Care [facility] Emergency Department Patient Discharge Instructions If your symptoms continue or worsen, return to the emergency department or contact your physician. If you have questions about your discharge instructions, call the phone number above. Providers Attending Physician - Juan Paula DO Lifetime Physician(PCP) - PCP, Out of State Provider Role Maykel Arita PA-C ED Provider Maida Cook DO ED Provider Reason for Visit Foot laceration Discharge Diagnosis Nail avulsion of toe Discharge Vitals T: 36.4 ?C (Oral) HR: 83 RR: 16 BP: 141/80 SpO2: 94% Oxygen Method: Room air HT: 180.34 cm WT: 94.2 kg BMI: 28.96 BSA: 2.17 Time patient left the ED These instructions are intended to provide general information and guidelines to follow at home to properly care for your particular medical problem. The following diagnostic tests and/or procedures were performed during your stay. Tests Performed Foot XR 2 Views Rt -- Results Pending -- You will be contacted within 72 hours with your results. Most Recent Lab Results Follow-up Instructions: All referrals for follow up medical care may require approval by your insurance carrier. Any provider contact information (below) is provided to assist you in getting the follow up we recommend. However, it's important that you first check with your insurance provider to assure that the provider is in yourinsurance provider to assure that the provider is in your network and such a visit will be covered. Some plans may require a Primary Care doctor to provide a referral for specialist appointments. You May Need to Schedule the Following Appointments Follow Up with Carolyn Mata When Within 1 to 3 days Why: Podiatry Where: [address] [address] [facility] [place] [address]- Business (1) Follow Up with Out of State PCP When Within 1 to 3 days We encourage you to sign up for My Portal, where you can easily access your medical records and test results from all [facility]. Please sign up in one of the following ways: 1. Email invitation. You may have a message in your inbox. Please click the link provided to create an account. OR 2. Request an invitation at your next clinic or hospital visit. Please ask a staff member and they will be happy to assist you. Medications What How Much When Instructions Next Dose New cephalexin (Keflex 500 mg oral capsule) 2 cap By mouth Twice daily Duration: 10 Days Printed Prescription Discharge Orders Discharge Orders: Discharge Now, Home or self care Education Materials Nail Avulsion Nail avulsion is when a nail tears away from the nail bed due to an accident or injury. Nail avulsion can be painful. Your finger or toe may bleed a lot, and you may have some pain, redness, throbbing, and swelling while it heals. Your nail will grow back within several months. Once it grows back, it might not look the same as the old nail. This may happen even after taking good care of it. Follow these instructions at home: Wound care Follow instructions from your health care provider about how to take care of your wound. Make sure you: Wash your hands with soap and water before and after you change your bandage (dressing). If soap and water are not available, use hand new client banking services clerk. Change your dressing as told by your health care provider. Leave stitches (sutures), skin glue, or adhesive strips in place, if present. These skin closures may need to stay in place for 2 weeks or longer. If adhesive strip edges start to loosen and curl up, you may trim the loose edges. Do not remove adhesive strips completely unless your health care provider tells you to do that. Check your wound every day for signs of infection. Check for: Redness, swelling, or pain. Fluid or blood. Warmth. Pus or a bad smell. Do not take baths, swim, or use a hot tub until your health care provider approves. Ask your health care provider if you may take showers. You may only be allowed to take sponge baths. If you notice bleeding, press gently on the nail bed with a gauze pad. Do this for 15 minutes. Keep the wound dry for 48 hours. After 48 hours have passed, lightly wash the finger or toe in warm, soapy water 2 3 times a day. This helps to reduce pain and swelling. It also prevents infection. Medicine Take tiju-kdg-miitvfq and prescription medicines only as told by your health care provider. Do not take aspirin or products containing aspirin unless directed by your health care provider. These products can increase bleeding. If you were prescribed an antibiotic medicine, take it or apply it as told by your health care provider. Do not stop taking or using the antibiotic even if you start to feel better. General instructions Keep the injured hand or foot raised above the level of your heart as much as possible in the first 48 hours after the injury. This helps to reduce pain and swelling. Move the toe or finger often to avoid stiffness. Do not use any products that contain nicotine or tobacco, such as cigarettes, e-cigarettes, and chewing tobacco. These can delay healing. If you need help quitting, ask your health care provider. Contact a health care provider if: You have increased redness, swelling, or pain around your wound. You have fluid or blood coming from your wound. You have pus or a bad smell coming from your wound. Your wound or the area around your wound feels warm to the touch. Get help right away if: You have bleeding that does not stop, even when you apply pressure to the wound. You have a temperature that is higher than 100.4?F (38?C). The affected finger or toe looks white or black. Summary Nail avulsion is when a nail tears away from the nail bed due to an accident or injury. Follow instructions from your health care provider about how to take care of your wound. Keep the injured hand or foot raised above the level of your heart as much as possible in the first 48 hours after the injury. This helps to reduce pain and swelling. Check your wound every day for signs of infection. Contact a health care provider if you have increased redness, swelling, or pain around your wound. This information is not intended to replace advice given to you by your health care provider. Make sure you discuss any questions you have with your health care provider. Document Revised: 10/26/2018 Document Reviewed: 10/26/2018 [employer] Patient Education ? 2020 [employer] Nail Avulsion Nail avulsion is when a nail tears away from the nail bed due to an accident or injury. Nail avulsion can be painful. Your finger or toe may bleed a lot, and you may have some pain, redness, throbbing, and swelling while it heals. Your nail will grow back within several months. Once it grows back, it might not look the same as the old nail. This may happen even after taking good care of it. Follow these instructions at home: Wound care Follow instructions from your health care provider about how to take care of your wound. Make sure you: Wash your hands with soap and water before and after you change your bandage (dressing). If soap and water are not available, use hand new client banking services clerk. Change your dressing as told by your health care provider. Leave stitches (sutures), skin glue, or adhesive strips in place, if present. These skin closures may need to stay in place for 2 weeks or longer. If adhesive strip edges start to loosen and curl up, you may trim the loose edges. Do not remove adhesive strips completely unless your health care provider tells you to do that. Check your wound every day for signs of infection. Check for: Redness, swelling, or pain. Fluid or blood. Warmth. Pus or a bad smell. Do not take baths, swim, or use a hot tub until your health care provider approves. Ask your health care provider if you may take showers. You may only be allowed to take sponge baths. If you notice bleeding, press gently on the nail bed with a gauze pad. Do this for 15 minutes. Keep the wound dry for 48 hours. After 48 hours have passed, lightly wash the finger or toe in warm, soapy water 2 3 times a day. This helps to reduce pain and swelling. It also prevents infection. Medicine Take [id number] and prescription medicines only as told by your health care provider. Do not take aspirin or products containing aspirin unless directed by your health care provider. These products can increase bleeding. If you were prescribed an antibiotic medicine, take it or apply it as told by your health care provider. Do not stop taking or using the antibiotic even if you start to feel better. General instructions Keep the injured hand or foot raised above the level of your heart as much as possible in the first 48 hours after the injury. This helps to reduce pain and swelling. Move the toe or finger often to avoid stiffness. Do not use any products that contain nicotine or tobacco, such as cigarettes, e-cigarettes, and chewing tobacco. These can delay healing. If you need help quitting, ask your health care provider. Contact a health care provider if: You have increased redness, swelling, or pain around your wound. You have fluid or blood coming from your wound. You have pus or a bad smell coming from your wound. Your wound or the area around your wound feels warm to the touch. Get help right away if: You have bleeding that does not stop, even when you apply pressure to the wound. You have a temperature that is higher than 100.4?F (38?C). The affected finger or toe looks white or black. Summary Nail avulsion is when a nail tears away from the nail bed due to an accident or injury. Follow instructions from your health care provider about how to take care of your wound. Keep the injured hand or foot raised above the level of your heart as much as possible in the first 48 hours after the injury. This helps to reduce pain and swelling. Check your wound every day for signs of infection. Contact a health care provider if you have increased redness, swelling, or pain around your wound. This information is not intended to replace advice given to you by your health care provider. Make sure you discuss any questions you have with your health care provider. Document Revised: 10/26/2018 Document Reviewed: 10/26/2018 [employer] Patient Education ? 2020 [employer] I understand that [facility] is not responsible for any personal belongings/effects or valuables that have not been identified on the valuables and belongings list. Any personal effects brought into the facility and not recorded on the valuables and belongings form are the responsibility of the patient/family/significant other. I have received the indicated patient education materials/instructions and medication list and have verbalized understanding. Patient Name: BRIELLE VILLASEÑOR Patient/Responsible Adult Signature: Date/Time: Provider Signature: Date/Time: 06/27/2021 [facility] ED Physician Notes Patient: BRIELLE VILLASEÑOR (EV) Age: 80 years Sex: M : 1940 Associated Diagnoses: None Author: Maida Cook DO Addendum Teaching-Supervisory Addendum-Brief I participated in the following activities of this patients care: the medical history, the physical exam, medical decision making. I personally performed: supervision of the patient's care, the medical history, the physical exam, the medical decision making. The case was discussed with: the physician stylist assistant (LB Natarajan). History of Present Illness The patient presents with toe pain. This is an 80 year old male on Warfarin presenting to the emergency department for evaluation of toe pain. The patient states that he stubbed his right great toe while getting ready for bed. Since then, he has had difficulty controlling bleeding. He was seen at urgent care, who recommended that he be seen here. His tetanus is up to date. Patient seen and evaluated with physician stylist assistant, please see the note for complete history and physical ED course of care. Physical Examination Vital Signs Vital-Signs 06/26/2021 23:16 MST Pain Intensity 0 Pain Scale Used Numeric Rating Scale Temperature PO 36.4 deg C Normal Heart Rate 83 bpm Normal NIBP Systolic 141 mm Hg H NIBP Diastolic 80 mm Hg Normal Resp Rate (Monitor) 16 Breaths/Min Normal SPO2 94 % Normal Oxygen Method Room air . General: Alert, mild distress. Skin: Warm, dry. Musculoskeletal: On exam of his right lower extremity right great toe he has an avulsed toenail of the right great toe with laceration extending across the nailbed. Neurological: Alert and oriented to person, place, time, and situation. Reexamination/ Reevaluation Notes: See the PA note for wound repair and suturing. Impression and Plan Complaint of Toe laceration (PNED [id number], Reason For Visit, Nursing) Nail avulsion of toe ([id number] S91.209A, Discharge, Medical) Plan Notes: Roscoe Strange scribe, am scribing for, and in the presence of, Maida Cook DO. This chart is electronically signed by myself, brad Ferguson. Maida Strange DO personally performed the services described in this documentation, as scribed by Roscoe Aguiar in my presence, and it is accurate and complete . Electronically Signed By: Maida Cook DO On 06/27/21 02:52 Co Signature By: Modify Signature By: Maida Cook DO On 06/27/21 02:51 06/27/2021 [facility] ED Physician Notes Patient: BRIELLE VILLASEÑOR (EV) Age: 80 years Sex: M : 1940 Associated Diagnoses: None Author: Maykel Arita PA-C Basic Information Time seen: Provider Initial Contact Time 06/26/2021 23:27. History source: Patient. Arrival mode: Private vehicle. History limitation: None. Additional information: Chief Complaint (ST) Chief Complaint ED: PT stubbed R big toe this morning - R big toe lac. On blood thinners. 06/26/21 23:16, Subjective Nursing Assessment: aaox4, speech clear, resp e/u, skin w/d. 06/26/21 23:16 . History of Present Illness The patient presents with toe pain. This is an 80 year old male presenting to the emergency department for evaluation of toe pain. The patient states that he stubbed his big toe on his right foot while getting ready for bed this evening. The patient states that he has had difficulty controlling bleeding. He was seen at urgent care prior to arrival, who sent him here for further evaluation. He is on Warfarin. His tetanus is up to date no other injury. He is alert oriented resting comfortably on the bed. Bleeding is controlled. He is up-to-date on his immunizations.. The onset was just prior to arrival. The course/duration of symptoms is constant. Location: Left right foot. The character of symptoms is pain and bleeding. Risk factors consist of Warfarin. Therapy today: urgent care. Associated symptoms: none. Review of Systems Constitutional symptoms: Negative except as documented in HPI. Skin symptoms: Negative except as documented in HPI. Eye symptoms: Negative except as documented in HPI. ENMT symptoms: Negative except as documented in HPI. Respiratory symptoms: Negative except as documented in HPI. Cardiovascular symptoms: Negative except as documented in HPI. Gastrointestinal symptoms: Negative except as documented in HPI. Genitourinary symptoms: Negative except as documented in HPI. Musculoskeletal symptoms: Reports: Right, foot, pain, trauma. Neurologic symptoms: Negative except as documented in HPI. Psychiatric symptoms: Negative except as documented in HPI. Endocrine symptoms: Negative except as documented in HPI. Hematologic/Lymphatic symptoms: Negative except as documented in HPI. Allergy/immunologic symptoms: Negative except as documented in HPI. Additional review of systems information: All other systems reviewed and otherwise negative. Health Status Allergies: Allergic Reactions (Selected) No Known Medication Allergies. Medications: Per nurse's notes. Past Medical/ Family/ Social History Medical history Cardiovascular: atrial fibrillation, AAA, bradycardia. Surgical history: Pacemaker, AAA repair. Social history: Alcohol use: Denies, Tobacco use: Denies, Drug use: Denies. Physical Examination Vital Signs Vital-Signs 06/26/2021 23:16 MST Oxygen Method Room air SPO2 94 % Normal Heart Rate 83 bpm Normal NIBP Systolic 141 mm Hg H NIBP Diastolic 80 mm Hg Normal Resp Rate (Monitor) 16 Breaths/Min Normal Temperature PO 36.4 deg C Normal Pain Intensity 0 Pain Scale Used Numeric Rating Scale . Measurements 06/26/2021 23:16 MST BSA-pt care 2.17 [place] Body Weight 75.3 kg Weight Method Actual Drug Calc Weight (kg) 94.2 kg BMI 28.96 kg/m2 Height 180.34 cm Height In 71 Inch . SPO2 06/26/2021 23:16 MST SPO2 94 % Normal . General: Alert, no acute distress. Skin: Warm, dry, pink, no rash. Head: Normocephalic. Neck: Supple, trachea midline, no tenderness, no JVD. Eye: Pupils are equal, round and reactive to light, extraocular movements are intact, normal conjunctiva, vision unchanged. Ears, nose, mouth and throat: Tympanic membranes clear, Mouth: Normal, Throat: Normal. Cardiovascular: Regular rate and rhythm, No murmur, No edema. Respiratory: Lungs are clear to auscultation. Chest wall: No tenderness, No deformity. Back: Nontender, Normal range of motion, Normal alignment, no step-offs. Musculoskeletal: Normal ROM, normal strength, no tenderness, no deformity. Gastrointestinal: Soft, Nontender, Non distended, Guarding: Negative, Rebound: Negative, Bowel sounds: Normal, Organomegaly: Negative, Mass: Negative. Genitourinary: No tenderness, no discharge. Neurological: Alert and oriented to person, place, time, and situation, No focal neurological deficit observed, CN II-XII intact, normal sensory observed, normal motor observed, normal speech observed, normal coordination observed. Lymphatics: No lymphadenopathy. Psychiatric: Cooperative, appropriate mood and affect, normal judgment, non-suicidal. Impression and Plan Nail avulsion of toe ([id number] S91.209A, Discharge, Medical) Plan Condition: Stable. Disposition: Medically cleared, Discharged: to home. Prescriptions: [facility]: Keflex 500 mg oral capsule (Prescribe): 2 Cap, PO, BID, for 10 Day, 40 Cap, 0 Refill(s). Patient was given the following educational materials: Nail Avulsion, Nail Avulsion. Follow up with: Out of State PCP Within 1 to 3 days; Carolyn Mata Within 1 to 3 days Podiatry. Counseled: Patient, Family, Regarding diagnosis, Regarding diagnostic results, Regarding treatment plan, Patient indicated understanding of instructions. Notes: SUPERVISED AND SEEN BY Dr. Maida Cook DO (SEE ADDITIONAL NOTE FROM PHYSICIAN) Roscoe Strange scribe, am scribing for, and in the presence of, LB Nieves. This chart is electronically signed by myself, brad Ferguson. IMaykel PA personally performed the services described in this documentation, as scribed by Roscoe Aguiar in my presence, and it is both accurate and complete Patient comes in today complaining of bleeding to the toe after having stubbed his foot. He is up-to-date on his immunizations. I do not believe the x-ray shows an acute fracture. The patient's toe was avulsed at the eponychial fold. It appears it has replaced into the fold itself. The wound was cleansed and then sutured at the paronychial fold to hold the nail into the fold. Rest of the nail appeared to be grossly intact. He will be referred to podiatry for follow-up. The toe was splinted. We will place him on a Keflex prophylactically. Patient's blood pressure is mildly elevated we did ask her to follow-up the primary care doctor in 2 to 3 days for reevaluation of his blood pressure.. Electronically Signed By: Maykel Arita PA-C On 06/27/21 00:52 Co Signature By: Maida Cook DO On 06/29/21 05:14 Modify Signature By: Roscoe Aguiar On 06/26/21 23:37 06/27/2021 [facility] ED Assessment - Text ED Initial Screenin g Entered On: 06/26/2021 23:20 [facility] Performed On: 06/26/2021 23:19 MST by Esther Persaud RN ED General Assessment Document Falls Risk : Open ED [facility] Fall Risk Assessment Emotional Assmt Criteria : Does not meet criteria Document Tim Skin Risk : Open Tim Skin Risk Assessment Document Social History : Open social history Suicide Risk Screen : Yes Immunization Opt Out : Allow Esther Persaud RN - 06/26/2021 23:19 [facility] ED Abuse Observable Signs of Abuse/Violence : None observed Threatening Health, Safety, Well-being : Denies Abuse Calculation : 0 Abuse Interp : No Esther Persaud RN - 06/26/2021 23:19 [facility] ED Fall Interventions Basic Fall Safety Interven Implemented : Keep gurney/bed in lowest position possible with brakes on when patient unattended, Keep room clutter and obstacle free (i.e. coil and secure excess cords/wires), Assure proper lighting, especially at night, Door or curtain to remain open when patient alone in room, Keep call light and frequently needed objects within patients reach, Provide fall prevention eduction to patient/family, [place] patient to surroundings, call light, lighting, location of BR, whether to use BR with or without assistance, Encourage non-skid footwear when ambulating, Consider bedside commonde/urinal Esther Persaud RN - 06/26/2021 23:19 [facility] [place] Suicide Severity Rating Scale (C-SSRS) 1. In the past 30 days have you wished you were or wished you could go to sleep and not wake up : No 2. In the past 30 days, have you had any actual thoughts about killing yourself : No 6. In your lifetime, have you ever done anything, started anything, or prepared to do anything to end your life : No Suicide Severity Rating Stratification : 0 Suicide Severity Rating : No additional care required at this time Suicide Prevention Interventions : No additional care required at this time Esther Persaud RN - 06/26/2021 23:19 [facility] ED Fall Risk Assessment History of Falling (Fall) : No Confusion Disorientation (Fall) : No Intoxicated Sedated (Fall) : No Impaired Gait (Fall) : No Mobility Assist Device (Fall) : No Altered Elimination (Fall) : No Fall Risk Score (Fall) : 0 Basic Fall Risk Safety Interventions : Yes Esther Persaud RN - 06/26/2021 23:19 MST Social History Verified Prev Data - Social History : Yes Esther Persaud RN - 06/26/2021 23:19 MST Social History (As Of: 06/26/2021 23:20:08 MST) Tobacco: Never (less than 100 in lifetime) (Last Updated: 06/26/2021 23:19:37 MST by Esther Persaud RN) Alcohol: Denies (Last Updated: 06/26/2021 23:19:41 MST by Esther Persaud RN) Substance Abuse: Denies (Last Updated: 06/26/2021 23:19:48 MST by Esther Persaud RN) Home/Environment: Christian restrictions/concerns: None. (Last Updated: 06/26/2021 23:19:51 MST by Esther Persaud RN) Tim Skin Risk Sensory Perception : (4) No impairment Moisture : (4) Rarely moist Activity Tim : (4) Walks frequently Mobility : (4) No limitations Nutrition : (4) Excellent Friction and Shear : (3) No apparent problem Tim Tissue Perfusion and Oxygenation : N/A Tim Score : 23 Esther Persaud RN - 06/26/2021 23:19 [facility] 06/27/2021 [facility] ED Assessment - Text ED Initial Screenin g Entered On: 06/26/2021 23:20 MST Performed On: 06/26/2021 23:19 MST by Esther Persaud RN ED General Assessment Document Falls Risk : Open ED [facility] Fall Risk Assessment Emotional Assmt Criteria : Does not meet criteria Document Tim Skin Risk : Open Tim Skin Risk Assessment Document Social History : Open social history Suicide Risk Screen : Yes Immunization Opt Out : Allow Esther Persaud RN - 06/26/2021 23:19 MST ED Abuse Observable Signs of Abuse/Violence : None observed Threatening Health, Safety, Well-being : Denies Abuse Calculation : 0 Abuse Interp : No Esther Persaud RN - 06/26/2021 23:19 [facility] ED Fall Interventions Basic Fall Safety Interven Implemented : Keep gurney/bed in lowest position possible with brakes on when patient unattended, Keep room clutter and obstacle free (i.e. coil and secure excess cords/wires), Assure proper lighting, especially at night, Door or curtain to remain open when patient alone in room, Keep call light and frequently needed objects within patients reach, Provide fall prevention eduction to patient/family, [place] patient to surroundings, call light, lighting, location of BR, whether to use BR with or without assistance, Encourage non-skid footwear when ambulating, Consider bedside commonde/urinal Esther Persaud RN - 06/26/2021 23:19 [facility] [place] Suicide Severity Rating Scale (C-SSRS) 1. In the past 30 days have you wished you were or wished you could go to sleep and not wake up : No 2. In the past 30 days, have you had any actual thoughts about killing yourself : No 6. In your lifetime, have you ever done anything, started anything, or prepared to do anything to end your life : No Suicide Severity Rating Stratification : 0 Suicide Severity Rating : No additional care required at this time Suicide Prevention Interventions : No additional care required at this time Esther Persaud RN - 06/26/2021 23:19 [facility] ED Fall Risk Assessment History of Falling (Fall) : No Confusion Disorientation (Fall) : No Intoxicated Sedated (Fall) : No Impaired Gait (Fall) : No Mobility Assist Device (Fall) : No Altered Elimination (Fall) : No Fall Risk Score (Fall) : 0 Basic Fall Risk Safety Interventions : Yes Esther Pesraud RN - 06/26/2021 23:19 [facility] Social History Verified Prev Data - Social History : Yes Esther Persaud RN - 06/26/2021 23:19 [facility] Social History (As Of: 06/26/2021 23:36:55 [facility]) Tobacco: Never (less than 100 in lifetime) (Last Updated: 06/26/2021 23:19:37 MST by Esther Persaud RN) Alcohol: Current, Daily (Last Updated: 06/26/2021 23:36:33 MST by Esther Persaud RN) Substance Abuse: Denies (Last Updated: 06/26/2021 23:19:48 MST by Esther Persaud RN) Home/Environment: Christian restrictions/concerns: None. (Last Updated: 06/26/2021 23:19:51 MST by Esther Persaud RN) Tim Skin Risk Sensory Perception : (4) No impairment Moisture : (4) Rarely moist Activity Tim : (4) Walks frequently Mobility : (4) No limitations Nutrition : (4) Excellent Friction and Shear : (3) No apparent problem Tim Tissue Perfusion and Oxygenation : N/A Tim Score : 23 Esther Persaud RN - 06/26/2021 23:19 MST 06/27/2021 [facility] ED Triage - Text ED Triage Entered On : 06/26/2021 23:19 MST Performed On: 06/26/2021 23:16 MST by Esther Persaud RN ED Triage Chief Complaint ED : PT stubbed R big toe this morning - R big toe lac. On blood thinners. Arrival Time : 06/26/2021 22:31 MST Reason for visit : INJ-LE Triage Assessment : aaox4, speech clear, resp e/u, skin w/d. Mode of Arrival : Ambulatory Esther Persaud RN - 06/26/2021 23:16 MST DCP GENERIC CODE Tracking Acuity : 4 - Non-urgent Tracking Group : CRM ED Tracking Esther Persaud RN - 06/26/2021 23:16 MST Travel to foreign country last 30 days : No Does Pt Have Symptoms of COVID 19 : No Tested for COVID19 in the past 14 days : No, Patient stated Does the Patient state known exposure to a COVID-19 positive case in the last 14 days : No Patient Vaccinated for COVID-19 : Fully vaccinated Esther Persaud RN - 06/26/2021 23:16 [facility] Infectious Disease Risk Screening Grid Cough < 2 wks of unknown origin : NO Cough > 2 weeks : NO Blood in Sputum : NO Fever or self-reported Fever : NO Rash of unknown origin : NO Headache : NO Stiff neck : NO Night Sweats : NO Unexplained Weight Loss : NO Diarrhea (3 episode per day) : NO Esther Persaud RN - 06/26/2021 23:16 MST Preferred Language for Healthcare Discussions : Nepali Assistive Device for Communication : No Sensory Deficits : None Temperature PO : 36.4 deg C(Converted to: 97.5 deg F) NIBP Systolic : 141 mm Hg (H) NIBP Diastolic : 80 mm Hg Heart Rate : 83 bpm Respiratory Rate (Monitor) : 16 Breaths/Min SPO2 : 94 % Oxygen Method : Room air Pain Intensity : 0 Pain Scale Used : Numeric Rating Scale Status : N/A Todays Date : 06/26/2021 [facility] Living Situation : Lives with spouse SIRS Criteria : N/A SIRS Actual or Suspected Infection : No INF Disease TB Screening Calc : 0 Pediatric Patient : N/A Esther Persaud RN - 06/26/2021 23:16 MST Drug/Clinical Calc Ht/Wt [place] Height Method : Stated Height Measurement Used : inches Height in : 71 Inch Height (cm) : 180.34 cm Weight Method : Actual Weight Measurement Used : kilograms Weight kg (metric) : 94.2 kg Drug Calc Weight (kg) : 94.2 kg BSA-pt care : 2.17 BMI : 28.96 kg/m2 [place] Body Weight : 75.3 kg Adjusted Body Weight : 82.86 kg BMI Abnormal High Criteria : 39 BMI High Check : 10 BMI Abnormal Low Criteria : 17 BMI Low Check : 12 ABW Calc : 82.86 kg ABW Calc2 : 94.2 kg Pediatric Patient : N/A Adult Pt : Adult Pt Ped Sepsis Conditional : Adult Pt Adult Sepsis Conditional : Adult Pt Peds Skin Risk : N/A Adult Skin Risk : N/A Esther Persaud RN - 06/26/2021 23:16 [facility] Allergies and Current Meds (ED) (As Of: 06/26/2021 23:19:12 [facility]) Allergies (Active) No Known Medication Allergies Estimated Onset Date: Unspecified ; Created By: Esther Persaud RN; Reaction Status: Active ; Category: Drug ; Substance: No Known Medication Allergies ; Type: Allergy ; Updated By: Esther Persaud RN; Reviewed Date: 06/26/2021 23:19 [facility] Medication List (As Of: 06/26/2021 23:19:12 [facility]) 06/27/2021 [facility] Vital Signs Vital Sign Value Date Comments Source Heart Rate (bpm) 81 06/27/2021 [facility] Respiratory Rate 16 Breaths/Min 06/27/2021 [facility] Oxygen Method Room air (06/27/21 1:14 AM) 06/27/2021 [facility] SPO2 96 06/27/2021 [facility] Systolic (mm Hg) 135 06/27/2021 [facility] Diastolic (mm Hg) 87 06/27/2021 [facility] Height (cm) 180.34 06/27/2021 [facility] Weight Method Actual (06/26/21 11:1 6 PM) 06/27/2021 [facility] Drug Calc Weight (kg) 94.2 06/27/2021 [facility] BMI 28.96 06/27/2021 [facility] Sensory Deficits None (06/26/21 11:16 PM) 06/27/2021 [facility] Temperature (c) 36.4 06/27/2021 [facility] Systolic (mm Hg) 141 06/27/2021 [facility] Diastolic (mm Hg) 80 06/27/2021 [facility] Heart Rate (bpm) 83 06/27/2021 [facility] Respiratory Rate 16 Breaths/Min 06/27/2021 [facility] SPO2 94 06/27/2021 [facility] Oxygen Method Room air (06/26/21 11:16 PM) 06/27/2021 [facility] Living Situation Lives with spouse (06/26/21 11:16 PM) 06/27/2021 [facility] Encounters Location Location Details Encounter Type Encounter Number Reason For Visit Attending Provider ADM Date DC Date Status Source [facility] Emergency [id number] Maida Cook 06/27 [facility] Social History Social History Date Source Social History TypeResponse Smoking Status Never (less than 100 in lifetime) entered on: 06/26/21 Sex 06/27/2021 [facility] nter Assessment and Plan Result Assessment and Plan Date Source Assessment and Plan No data available fo r this section 06/27/2021 [facility]
[2022-11-16 13:34] LABS: Slide Review Reflex No
--- NOTE | 2022-11-16 14:51 | ED.NURSE ---
Small amount of oozing bright red blood noted on dressing. MD informed. Per MD instructions, dressing changed. Pt tolerated well. Bleeding controlled at this time.
--- NOTE | 2022-11-16 15:20 | ED.NURSE ---
Additional suture placed by Dr. Metz. Dressing applied.
--- NOTE | 2022-11-16 16:25 | ED.NURSE ---
Report given to [facility] nurse. Pt left by private vehicle with family. Bleeding controlled at time of disccharge. Sock and post-op shoe provided.
== END 2022-11-16 16:00 | disposition home or self-care (01) ==
PROVIDERS: Family Medicine; Emergency Provider Emergency Medicine; PCP Family Medicine
DX: L76.22 Postprocedural hemorrhage of skin and subcutaneous tissue following other procedure (principal); D62 Acute posthemorrhagic anemia
CPT/HCPCS: 12001; 36415; 85025; 85610; 86850; 86900; 86901; 99283; 99284